=== PATIENT | male | born 1965 | race Two or more races ===

== ENCOUNTER 2024-02-02 19:28 | Emergency (ER) | payer BC ==
[~2024-02-02] VITALS: Ht 175.3 cm; Wt 96.2 kg
[2024-02-02 19:38] VITALS: BP 170/100; O2SAT 98
[2024-02-02] MEDS ORDERED: KAPSPARGO SPRIN25 MG (19:42)
[2024-02-02] MEDS ORDERED: COZAAR25 MG (19:43)
== END 2024-02-02 21:05 | disposition home or self-care (01) ==
LOC: ER 19:30
DX: T18.9XXA Foreign body of alimentary tract, part unspecified, initial encounter (principal); Y92.89 Other specified places as the place of occurrence of the external cause; E11.9 Type 2 diabetes mellitus without complications; I10 Essential (primary) hypertension